=== PATIENT | female | born 1995 | race African-American/Black ===

== ENCOUNTER 2017-05-31 19:45 | Emergency (ER) | payer SELFPAY ==
[2017-05-31 21:40] LABS: Bilirubin Negative (Negative); Blood, Urine Large (Negative); Glucose, Urine (Dipstick) Negative (Negative); Ketone, Urine 15 mg/dL (Negative); Nitrite Negative (Negative); Protein, Urine (Dipstick) Negative (Neg-Trace)
[2017-05-31 21:45] LABS: Bacteria/HPF None Seen HPF (None Seen); Hyaline Casts/LPF 4-6 HYALINE CAST LPF (0-3 Hyaline); Squamous Epithelial 0-3 HPF (0-3)
[2017-05-31] MEDS ORDERED: Ondansetron ODT 4 MG TAB ONE (21:59)
== END 2017-05-31 23:13 | disposition home or self-care (01) ==
LOC: ERS 19:45
DX: N12 Tubulo-interstitial nephritis, not specified as acute or chronic (principal); F17.210 Nicotine dependence, cigarettes, uncomplicated
CPT/HCPCS: 81003; 81015; 81025; 87086; 99284; Q0162

== ENCOUNTER 2017-10-11 13:28 | Outpatient (CLI) | payer MEDICAID | END 2017-10-11 13:29 | disposition home or self-care (01) | LOC: BICULT 13:28 | PROVIDERS: ATTEND Nurse Practitioner | DX: N63.10 Unspecified lump in the right breast, unspecified quadrant (principal) ==

== ENCOUNTER 2017-11-10 10:00 | Emergency (ER) | payer MEDICAID, SELFPAY ==
[2017-11-10] MEDS ORDERED: Ondansetron ODT 8 MG TAB ONE (10:24)
[2017-11-10 10:45] LABS: Bilirubin Negative (Negative); Blood, Urine Negative (Negative); Clarity CLEAR (Clear); Glucose, Urine (Dipstick) Negative (Negative); Leukocyte Negative (Negative); Nitrite Negative (Negative); Protein, Urine (Dipstick) Trace mg/dL (Neg-Trace); Specific Gravity, Urine 1.022 (1.002-1.036); Urobilinogen 0.2 mg/dL (0.2-1.0)
== END 2017-11-10 10:58 | disposition home or self-care (01) ==
LOC: ERS 10:00
DX: O99.89 Other specified diseases and conditions complicating pregnancy, childbirth and the puerperium (principal); R11.0 Nausea; O99.331 Smoking (tobacco) complicating pregnancy, first trimester; F17.210 Nicotine dependence, cigarettes, uncomplicated; Z3A.01 Less than 8 weeks gestation of pregnancy
CPT/HCPCS: 81003; 99283

== ENCOUNTER 2017-11-12 01:02 | Emergency (ER) | payer MEDICAID, OTHER, SELFPAY ==
[2017-11-12] MEDS ORDERED: Ondansetron ODT 4 MG TAB ONE (02:11)
--- NOTE | 2017-11-12 08:17 | ULT ---
PRELIMINARY REPORT/[facility]/EMERGENCY AFTER HOURS PROCEDURE: EXAM: US Uterus, Limited EXAM DATE/TIME: Exam ordered 11/12/2017 1:26 AM CLINICAL HISTORY: 22 years old, female; Signs and symptoms; Lmp or gestational age (in weeks): 6w5d; Antepartum complic ations; Bleeding; ; Patient HX: Vaginal spotting tonight TECHNIQUE: Real-time ultrasound of the maternal uterus (limited) with image documentation. COMPARISON: No relevant prior studies available. FINDINGS: Fetus: Single intrauterine gestation. [place]-rump length correlates with estimated gestational age of 6 weeks zero days. Heart rate: There are no images demonstrating attempted Doppler interrogation for heart rate. Placenta: 2.5 cm subchorionic hematoma. Adnexa: Ovaries are normal with normal Doppler signal. IMPRESSION: 1. Single intrauterine gestation as above. 2. There are no images demonstrating attempted Doppler interrogation for heart rate. 3. 2.5 cm subchorionic hematoma. Thank you for allowing us to participate in the care of your patient. Dictated and Authenticated by: Nicanor Levine MD 11/12/2017 2:24 AM Central Time ([place] & [place]) FINAL REPORT OB ULTRASOUND: There is an intrauterine with gestational age by ultrasound consistent with 6 weeks 5 days. Yolk sac and pole are identified. [place]-rump length indicates a 6 weeks 0 day gestational ag e. Maternal ovaries are identified. heart rate is not documented on the images presented. Evidence of a small subchorionic hemorrhage. I am in agreement with the preliminary report. POS: JOMAR
== END 2017-11-12 03:22 | disposition home or self-care (01) ==
LOC: ERS 01:02
DX: O20.8 Other hemorrhage in early pregnancy (principal); Z3A.01 Less than 8 weeks gestation of pregnancy; Z87.891 Personal history of nicotine dependence
CPT/HCPCS: 36415; 76856; 86900; 86901; 93976; Q0162

== ENCOUNTER → 2018-01-17 | Day surgery (SDC) | payer OTHER | LOC: BICULT 12:51 | PROVIDERS: ATTEND Family Medicine | PROC: 0HBT3ZX Excision of Right Breast, Percutaneous Approach, Diagnostic (ICD-10-PCS; principal; 2018-01-17) | DX: D24.1 Benign neoplasm of right breast (principal); Z79.899 Other long term (current) drug therapy | CPT/HCPCS: 19083; 88305 ==

== ENCOUNTER 2018-06-14 17:33 | Inpatient (IN) | payer OTHER ==
[2018-06-14] MEDS ORDERED: HYDROcodone/Acetaminophen 5/325 mg Tablet PO PRN ×2 (17:45)
[2018-06-14] MEDS ORDERED: Promethazine HCl 25 MG/ML VIAL IM PRN ×2 (17:45→20:26)
[2018-06-14] MEDS ORDERED: Lidocaine 1% (PF) 30 ML VIAL SC PRN ×2 (17:45→19:37)
[2018-06-14] MEDS ORDERED: Butorphanol Tartrate 1 MG/ML VIAL SLOW IVP PRN (17:45)
[2018-06-14] MEDS ORDERED: Ondansetron PF 4 MG/2 ML Vial IVP PRN ×2 (17:45→20:26)
[2018-06-14] MEDS ORDERED: Lactated Ringer's 1,000 ML IV SCH (17:45)
[2018-06-14] MEDS ORDERED: Penicillin G Potassium 5 MILL.UNITS in Sodium Chloride 0.9% 100 ML IVPB SCH (17:45)
[2018-06-14] MEDS ORDERED: NS / Oxytocin 40 units/1000ml 1,000 ML IV PRN ×2 (17:45→19:37)
[2018-06-14] MEDS ORDERED: Ibuprofen 800 MG TAB PO PRN (17:45)
[2018-06-14 17:53] VITALS: BMI 27.9
--- NOTE | 2018-06-14 18:15 | PDOC.LDHP ---
Labor and Delivery H&P Chief complaint: contractions HPI: deborah pt. ob record not on unit. reports was told gbs negative . admits cannabis use in early gestation Due date: 07/03/18 Dating criteria: first trimester ultrasound Grav: 2 Para: 1 Current complications: none Abnormal US findings: No Current medications: pre-lynne vitamins Previous surgical history: other (br bx) Allergies/Adverse Reactions: Allergies Allergy/AdvReac Type Severity Reaction Status Date / Time No Known Allergies Allergy Verified 08/13/13 22:00 Social history: drug use - Physical Exam Vital signs reviewed and normal: yes General: NAD, resting, breathing through contractions Heart: RRR Lungs: CTAB Abdomen: gravid Extremeties: no edema FHT: category 1 - Vaginal Exam cm dilated: 4 Effacement: 25% Station: -3 - OB Labs Blood type: unknown RH: unknown Antibody Screen: unknown HIV: unknown RPR: unknown HEPSAg: unknown 1 hour GCT: unknown GBS: negative Urine drug screen: not done - Assessment L&D Assessment: term patient in labor - Plan Plan: admit to L&D, labor augmentation if indicated
[2018-06-14 18:36] LABS: Hemoglobin 11.4 g/dL (12.0-16.0); Mean Corpuscular HGB CONC 35.2 g/dL (32.0-36.0); Mean Corpuscular Hemoglobin 29.2 pg (27.0-31.0); Mean Platelet Volume 7.6 fL (7.4-10.4); Platelet Count 272 thou/uL (130-400); RBC Distribution Width 13.8 % (11.5-14.5); Red Blood Cell (RBC) Count 3.89 mill/uL (4.20-5.40); White Blood Cell (WBC) Count 9.6 thou/uL (4.8-10.8)
[2018-06-14 19:08] LABS: Syphilis Antibody Nonreactive (Nonreactive); Syphilis Antibody Index 0.03 S/CO (<1.00 Non-Reactive)
[2018-06-14 19:09] LABS: HBSAg Index 0.17 S/CO (0-0.99); Hep B Surf Ag Non-Reactive S/CO (NonReactive)
[2018-06-14] MEDS ORDERED: Fentanyl 4 mcg/Bup 0.1% Cadd 100 ML ONE (19:34)
--- NOTE | 2018-06-14 19:38 | PDOC.LDPN ---
Labor & Delivery Progress Note - Subjective Subjective: comfortable - Objective Vital signs reviewed and normal: yes General: NAD, resting Uterine fundus: non tender Dilation: 4 Effacement: 50% Station: -2 FHT: category 1 AROM: clear fluid
[2018-06-14] MEDS ORDERED: NS w/ Oxytocin 10 units 500 ML IV SCH (19:45)
[2018-06-14] MEDS ORDERED: Lactated Ringer's 500 ML IV PRN (20:26)
[2018-06-14] MEDS: Lactated Ringer's 1,000 ML IV SCH (20:26)
[2018-06-14] MEDS ORDERED: Eucerin (Mineral Oil/Petrolatum,White) 30 gm Jar TOP PRN (20:26)
[2018-06-14] MEDS ORDERED: Naloxone HCl 0.4 mg/ml Vial IVP PRN ×2 (20:26)
[2018-06-14] MEDS ORDERED: diphenhydrAMINE 50 MG/ML VIAL IVP PRN (20:26)
[2018-06-14] MEDS ORDERED: Acetaminophen 325 MG TAB PO PRN (20:26)
[2018-06-14] MEDS ORDERED: ePHEDrine/0.9% NaCl/PF SYRINGE 50 mg/10 ml SLOW IVP PRN (20:26)
[2018-06-14] MEDS ORDERED: Fentanyl 4 mcg/Bupivacaine 0.1% Cassette 100 ML EPIDURAL SCH (20:30)
[2018-06-14] MEDS ORDERED: Communication Order-Pharmacy FS SCH (20:30)
[2018-06-14 21:12] LABS: Amphetamine Not Detected (NotDetected); Barbiturates Screen Not Detected (NotDetected); Benzodiazepine Screen Not Detected (NotDetected); Cocaine Metabolite Screen Not Detected (NotDetected); Medtox Control Line Valid? VALID (VALID); Medtox Reader # READER 1; Methadone Not Detected (NotDetected); Methamphetamine Not Detected (NotDetected); Opiate Screen Not Detected (NotDetected); Oxycodone Screen Not Detected (NotDetected); Phencyclidine (PCP) Not Detected (NotDetected); THC/Cannabinoid Screen Detected (NotDetected); Tricyclic Screen Not Detected (NotDetected)
[2018-06-14] MEDS ORDERED: Lidocaine 1% (PF) 30 ML VIAL ONE (21:57)
[2018-06-14] MEDS ORDERED: NS / Oxytocin 40 units/1000ml 1,000 ML ONE (21:57)
[2018-06-15] MEDS ORDERED: Bupivacaine HCl 0.25%/Epi 0.0005/PF 10 ML VIAL FS ONE (01:00)
[2018-06-15] MEDS: Penicillin G 2.5 MILL.units 2.5 MILL.UNITS in Premix Bag 1 BAG IVPB SCH ×2 (02:49→02:50)
[2018-06-15] MEDS ORDERED: Milk Of Magnesia 30 ML UDCUP PO PRN (02:57)
[2018-06-15] MEDS ORDERED: Bisacodyl 10 MG SUPP PR PRN (02:57)
[2018-06-15] MEDS ORDERED: Ondansetron PF 4 MG/2 ML Vial IVP PRN (02:57)
[2018-06-15] MEDS ORDERED: HYDROcodone/Acetaminophen 5/325 mg Tablet PO PRN (02:57)
[2018-06-15] MEDS ORDERED: Preparation H Ointment 28 GM TUBE PR PRN (02:57)
[2018-06-15] MEDS ORDERED: Lanolin Ointment 7 GM TUBE TOP PRN (02:57)
[2018-06-15] MEDS ORDERED: NS / Oxytocin 40 units/1000ml 1,000 ML IV SCH (02:57)
[2018-06-15] MEDS ORDERED: diphenhydrAMINE 25 MG CAP PO PRN (02:57)
[2018-06-15] MEDS: Ibuprofen 800 MG TAB PO SCH ×3 (04:22→21:35)
[2018-06-15 07:31] LABS: Hemoglobin 10.5 g/dL (12.0-16.0); Mean Corpuscular HGB CONC 35.4 g/dL (32.0-36.0); Mean Corpuscular Hemoglobin 29.3 pg (27.0-31.0); Mean Corpuscular Volume 82.8 fL (78.0-98.0); Mean Platelet Volume 7.3 fL (7.4-10.4); Platelet Count 229 thou/uL (130-400); RBC Distribution Width 13.9 % (11.5-14.5); Red Blood Cell (RBC) Count 3.59 mill/uL (4.20-5.40); White Blood Cell (WBC) Count 14.2 thou/uL (4.8-10.8)
[2018-06-15] MEDS ORDERED: Ondansetron ODT 8 MG TAB PO SCH (09:00)
[2018-06-15] MEDS: Ferrous Sulfate 325 MG TAB PO SCH ×2 (09:54→16:26)
[2018-06-15] MEDS: Lactated Ringer's 1,000 ML IV SCH (09:55)
[2018-06-15] MEDS: Docusate Calcium (SURFAK) 240 MG CAP PO SCH ×2 (10:12→21:35)
[2018-06-15] MEDS: Prenatal Vitamin 1 TAB PO SCH (10:12)
[2018-06-15] MEDS: HYDROcodone/Acetaminophen 5/325 mg Tablet PO PRN ×2 (11:22→21:40)
[2018-06-16] MEDS: Ibuprofen 800 MG TAB PO SCH ×2 (05:33→14:17)
[2018-06-16 07:58] VITALS: BP 112/53; TEMP 97.6
[2018-06-16] MEDS: Ferrous Sulfate 325 MG TAB PO SCH (09:24)
[2018-06-16] MEDS: Docusate Calcium (SURFAK) 240 MG CAP PO SCH (09:24)
[2018-06-16] MEDS: Prenatal Vitamin 1 TAB PO SCH (09:24)
== END 2018-06-16 18:10 | disposition home or self-care (01) | DRG 807 ==
LOC: L&D/OP 17:33 → L&D 17:41 → 3SW 06-15 04:03
PROVIDERS: ADMIT Obstetrics & Gynecology; ATTEND Obstetrics & Gynecology
PROC: 10E0XZZ Delivery of Products of Conception, External Approach (ICD-10-PCS; principal; 2018-06-15)
PROC: 10907ZC Drainage of Amniotic Fluid, Therapeutic from Products of Conception, Via Natural or Artificial Opening (ICD-10-PCS; 2018-06-15)
DX: O99.324 Drug use complicating childbirth (principal); Z37.0 Single live birth; F12.90 Cannabis use, unspecified, uncomplicated; Z3A.37 37 weeks gestation of pregnancy
CPT/HCPCS: 36415; 51702; 80306; 85027; 86780; 86850; 86900; 86901; 87340; 99285; J1200; J2001

== ENCOUNTER 2019-08-28 17:11 | Emergency (ER) | payer SELFPAY | END 2019-08-28 17:45 | disposition home or self-care (01) | LOC: MERGE 17:11 → ERS 17:11 | DX: S56.911A Strain of unspecified muscles, fascia and tendons at forearm level, right arm, initial encounter (principal); K01.1 Impacted teeth; F17.210 Nicotine dependence, cigarettes, uncomplicated; X58.XXXA Exposure to other specified factors, initial encounter | CPT/HCPCS: 99283 ==